=== PATIENT | female | born 1990 | race Caucasian/White ===

== ENCOUNTER 2021-06-27 18:26 | Emergency (ER) | payer OTHER | END 2021-06-27 19:30 | disposition left against medical advice (07) | LOC: ER 18:26 | DX: Z53.21 Procedure and treatment not carried out due to patient leaving prior to being seen by health care provider (principal) ==

== ENCOUNTER 2021-07-04 10:57 | Emergency (ER) | payer OTHER ==
[~2021-07-04] VITALS: Ht 170.2 cm; Wt 77.1 kg
[2021-07-04 13:07] LABS: SARS-Cov-2 (COVID-19) PCR, MMC NEGATIVE (NEGATIVE)
[2021-07-04] MEDS ORDERED: PRENATAL TABLE1 EAC2 PO (14:17)
[2021-07-04 15:11] LABS: Source, Urine Clean Catch
[2021-07-04] MEDS ORDERED: Acetaminophen500 MG PO (15:12)
[2021-07-04 15:22] LABS: Appearance, Urine Clear (Clear); Bilirubin, Urine Neg (Neg); Blood, Urine 1+ (Neg); Color, Urine Yellow (P-Yellow); Glucose Qualitative, Urine Neg (Neg); Ketones, Urine 1+ (Neg); Leukocyte Esterase, Urine 3+ (Neg); Nitrite, Urine Neg (Neg); Protein, Urine 1+ (Neg); Specific Gravity, Urine 1.015 (1.003-1.022); Urobilinogen, Urine 1+ (Normal)
[2021-07-04 15:39] LABS: Calcium Oxalate Crystals Rare /hpf; Red Blood Cells, Urine 0-2 /hpf (0-2)
[2021-07-04 15:40] LABS: Bacteria Many /hpf; Squamous Epithelial Cells Many /hpf (Few)
[2021-07-04] MEDS ORDERED: CEPH500 PO (15:52)
[2021-07-04] MEDS ORDERED: MONUROL3 GM PO (16:30)
== END 2021-07-04 16:36 | disposition home or self-care (01) ==
LOC: ER 10:57
PROVIDERS: Physician Assistant; Student in an Organized Health Care Education/Training Program
DX: O9A.212 Injury, poisoning and certain other consequences of external causes complicating pregnancy, second trimester (principal); S39.012A Strain of muscle, fascia and tendon of lower back, initial encounter; O99.891 Other specified diseases and conditions complicating pregnancy; O99.512 Diseases of the respiratory system complicating pregnancy, second trimester; O46.8X2 Other antepartum hemorrhage, second trimester; R82.71 Bacteriuria; R05 Cough; R09.81 Nasal congestion; Z20.822 Contact with and (suspected) exposure to COVID-19; Z3A.20 20 weeks gestation of pregnancy; Z88.0 Allergy status to penicillin; Z88.5 Allergy status to narcotic agent; W18.30XA Fall on same level, unspecified, initial encounter; Y92.89 Other specified places as the place of occurrence of the external cause
CPT/HCPCS: 76816; 81001; 87086; 99284-25; U0004

== ENCOUNTER → 2022-11-22 | Outpatient (CLI) | payer OTHER ==
[~2022-11-22] MED LIST: Acetaminophen500 MG PO; CEPH500 PO; MONUROL3 GM PO; PRENATAL TABLE1 EAC2 PO; SULTRIDS PO; XARELTO1 EAC1 PO
[2022-11-22 16:27] LABS: BASOPHILS ABSOLUTE AUTO 0.04 K/mm3 (0.00-0.23); BASOPHILS PERCENT AUTO 0 % (0-2); EOSINOPHILS ABSOLUTE AUTO 0.14 K/mm3 (0.00-0.68); EOSINOPHILS PERCENT AUTO 1 % (0-6); Hematocrit 37.9 % (33.0-51.0); IMMATURE GRAN ABSOLUTE AUTO 0.02 K/mm3 (0.00-0.10); IMMATURE GRAN PERCENT AUTO 0 % (0-1); LYMPHOCYTES PERCENT AUTO 30 % (21-46); MONOCYTES ABSOLUTE AUTO 0.67 K/mm3 (0.16-1.47); MONOCYTES PERCENT AUTO 7 % (4-13); Mean Corpuscular HGB 32.7 pg (26.0-34.0); Mean Corpuscular HGB Conc 34.3 g/dL (31.5-36.5); Mean Corpuscular Volume 95 fL (80-100); NEUTROPHILS ABSOLUTE AUTO 5.91 K/mm3 (1.96-9.15); NEUTROPHILS PERCENT AUTO 61 % (41-73); RDW Standard Deviation 42.1 fL (35.1-46.3); Red Blood Cell Count 3.98 M/mm3 (3.80-5.20); White Blood Cell Count 9.68 K/mm3 (4.00-11.30)
[2022-11-22 16:35] LABS: Mean Platelet Volume 9.6 fL (9.1-12.4); Platelet Count 325 K/mm3 (150-400)
[2022-11-22 16:36] LABS: Albumin, Blood 3.1 g/dL (3.4-5.0); Albumin/Globulin Ratio 0.6 (0.8-1.8); Bilirubin, Total 0.3 mg/dL (0.1-1.0); Bun/Creatinine Ratio 21.9 (12.0-20.0); Calcium, Blood 9.4 mg/dL (8.5-10.1); Creatinine, Blood 0.64 mg/dL (0.40-1.00); Globulin, Blood 5.2 g/dL (2.2-4.0); Potassium, Blood 3.9 mmol/L (3.5-5.5); Total Protein, Blood 8.3 g/dL (6.4-8.2)
== END | disposition home or self-care (01) ==
LOC: LAB SHORT 16:22
PROVIDERS: Emergency Medicine
DX: R10.13 Epigastric pain (principal)
CPT/HCPCS: 80053; 83690; 85025

== ENCOUNTER → 2023-03-12 | Outpatient (CLI) | payer OTHER ==
[2023-03-12 20:18] LABS: Percent Saturation 8.7 % (15.0-50.0)
== END | disposition home or self-care (01) ==
LOC: LAB SHORT 15:30 → LAB 15:30
PROVIDERS: Internal Medicine Hematology & Oncology
DX: D64.9 Anemia, unspecified (principal)
CPT/HCPCS: 82728; 83540; 83550

== ENCOUNTER → 2023-12-11 | Outpatient (CLI) | payer OTHER ==
[2023-12-11 14:15] LABS: Percent Saturation 27.9 % (15.0-50.0)
== END | disposition home or self-care (01) ==
LOC: LAB SHORT 12:50 → LAB 12:50
PROVIDERS: Internal Medicine Hematology & Oncology
DX: I26.99 Other pulmonary embolism without acute cor pulmonale (principal); D50.0 Iron deficiency anemia secondary to blood loss (chronic); E53.8 Deficiency of other specified B group vitamins
CPT/HCPCS: 82607; 82728; 82746; 83540; 83550

== ENCOUNTER → 2024-10-03 | Outpatient (CLI) | payer OTHER ==
[2024-10-03 17:43] LABS: Candida glabrata-krusei, PCR NOT DETECTED (NOT DETECT)
[2024-10-03 18:14] LABS: Chlamydia Trachomatis Vaginal NOT DETECTED (NOT DETECT); Neisseria Gonorrhoea Vaginal NOT DETECTED (NOT DETECT)
[2024-10-04 00:01] LABS: Bacterial Vaginosis PCR Positive (NEGATIVE); Candida Group, PCR DETECTED (NOT DETECT)
== END ==
LOC: LAB 11:32 → LAB SHORT 11:32
PROVIDERS: Nurse Practitioner Family
DX: Z72.51 High risk heterosexual behavior (principal)
CPT/HCPCS: 87481; 87491; 87591; 87661; 87801

== ENCOUNTER → 2024-10-03 | Outpatient (CLI) | payer OTHER ==
[2024-10-06 13:59] LABS: HIV 1,2 COMBO ANTIGEN/ANTIBODY Negative (Negative)
== END ==
LOC: LAB 16:14 → LAB SHORT 16:14
PROVIDERS: Nurse Practitioner Family
DX: Z72.51 High risk heterosexual behavior (principal)
CPT/HCPCS: 86592; 87389

== ENCOUNTER → 2024-12-28 | Outpatient (CLI) | payer OTHER | END | disposition home or self-care (01) | LOC: LAB SHORT 12:07 → LAB 12:07 | DX: J02.9 Acute pharyngitis, unspecified (principal) | CPT/HCPCS: 87081 ==

== ENCOUNTER → 2025-03-19 | Outpatient (CLI) | payer OTHER | LOC: LAB 09:30 → LAB SHORT 09:30 | DX: R35.0 Frequency of micturition (principal) | CPT/HCPCS: 87077; 87086; 87186 ==

== ENCOUNTER → 2025-06-08 | Outpatient (CLI) | payer OTHER | LOC: LAB 13:13 → LAB SHORT 13:13 | DX: N30.01 Acute cystitis with hematuria (principal) | CPT/HCPCS: 87077; 87086; 87185; 87186 ==